=== PATIENT | male | born 1960 | race Caucasian/White ===

== ENCOUNTER 2017-02-11 17:25 | Emergency (ER) | payer MEDICARE, OTHER ==
[~2017-02-11 17:25] MED LIST: EPINEPHrine 10 ML SYRINGE (0.1 MG/ML) ONE; SODIUM BICARB 8.4% 50 ML SYR (1 MEQ/ML) ONE
[2017-02-11 17:57] LABS: Glucose,Whole Blood 261 mg/dL (75-99)
--- NOTE | 2017-02-11 18:15 | ED ---
General Adult HPI - General Stated complaint: cardiac Time Seen by Provider: 02/11/17 17:50 Source: EMS, RN notes reviewed, old records reviewed Limitations: altered mental status - History of Present Illness Initial comments: This is a 56-year-old male to the ER for evaluation of cardiopulmonary arrest, CPR in progress. EMS was called to patient's FOR evaluation regarding unresponsive patient, he recalled by who stated patient had chest pain minute difficulty breathing after becoming unresponsive. EMS on arrival did notice patient without pulse, patient was intubated, they were advised to shock 4, appendectomy was given and patient was transported to emergency room. Patient currently going through ACLS protocol, no current return of spontaneous circulation - Related Data Allergies Allergy/AdvReac Type Severity Reaction Status Date / Time Unable to Assess Allergy Verified 02/11/17 18:17 Review of Systems ROS Statement: Those systems with pertinent positive or pertinent negative responses have been documented in the HPI. ROS Other: All systems not noted in ROS Statement are negative. General Exam - General Exam Comments Initial Comments: ET tube was verified by visual laryngoscopy Limitations: altered mental status, physical limitation General appearance: lethargic, in distress, obese Head exam: Present: atraumatic, normocephalic, normal inspection Eye exam: Present: normal appearance, other (Cyanosis anterior chest). Absent: scleral icterus, conjunctival injection, periorbital swelling Pupils: Present: other (Pupils fixed and dilated) ENT exam: Present: normal exam, mucous membranes moist Neck exam: Present: normal inspection. Absent: tenderness, meningismus, lymphadenopathy Respiratory exam: Present: normal lung sounds bilaterally. Absent: respiratory distress, wheezes, rales, rhonchi, stridor Cardiovascular Exam: Present: regular rate, normal rhythm, normal heart sounds. Absent: systolic murmur, diastolic murmur, rubs, gallop, clicks GI/Abdominal exam: Present: soft, normal bowel sounds. Absent: distended, tenderness, guarding, rebound, rigid Extremities exam: Present: normal inspection, full ROM, normal capillary refill. Absent: tenderness, pedal edema, joint swelling, calf tenderness Back exam: Present: normal inspection Neurological exam: Present: alert, oriented X3, CN II-XII intact Skin exam: Present: intact, cyanosis, pallor, mottled. Absent: rash Course Vital Signs 02/11/17 17:27 Temperature 96.9 F L Respiratory 0 L Rate - Reevaluation(s) Reevaluation #1: 02/11/17 18:00 Per EMS patient was really complaining of shortness of breath and chest pain, took aspirin and then vomited, became unresponsive was breathing but then stopped breathing and lost pulse. Reevaluation #2: 02/11/17 18:06 On exam patient is without heart sounds without chest movements or breath sounds , asystole with pupils fixed and dilated Reevaluation #3: 02/11/17 19:24 Spoke with patient family greater than 15 minutes regarding patient's expiration , questions are answered Reevaluation #4: 02/11/17 19:52 Spoke with medical scientific liaison Medical Decision Making - Medical Decision Making 56 male the ER, no medical history, cardiopulmonary arrest secondary to V. fib cardiac arrest, 4 shocks per EMS routine appendectomy and greater than 45 minutes of ACLS, patient is without return of spontaneous circulation, patient 07/09 - Lab Data Lab Results 02/11/17 Range/Units 17:34 POC Glucose (mg/dL) 261 H (75-99) mg/dL POC Glu Launch Manager ID Mayela Blakelynie Disposition Clinical Impression: Cardiopulmonary arrest Disposition: Referrals: None,Stated [REFERRING] - 1-2 days Preliminary Cause of : CPA
[2017-02-11 18:17] VITALS: RESP 0; TEMP 96.9
== END 2017-02-11 21:50 | disposition expired ==
LOC: EC 17:25
DX: I46.9 Cardiac arrest, cause unspecified (principal); E66.9 Obesity, unspecified; Z68.32 Body mass index [BMI] 32.0-32.9, adult; R41.82 Altered mental status, unspecified
CPT/HCPCS: 36415; 92950; 99285